=== PATIENT | male | born 1970 | race Hispanic/Latino ===

== ENCOUNTER → 2020-01-06 | Outpatient (CLI) | payer MEDICAID ==
[~2020-01-06] MED LIST: IOHEXOL-350 50ML VIAL IV ONE
== END | disposition home or self-care (01) ==
LOC: RAH 12:46
PROVIDERS: ATTEND Internal Medicine
DX: R18.8 Other ascites (principal); M54.6 Pain in thoracic spine
CPT/HCPCS: 71270; Q9967

== ENCOUNTER → 2020-01-20 | Outpatient (CLI) | payer MEDICAID | END | disposition home or self-care (01) | LOC: RAH 12:53 → EDUNIT# 13:00 | PROVIDERS: ATTEND Internal Medicine | DX: M47.812 Spondylosis without myelopathy or radiculopathy, cervical region (principal); M54.2 Cervicalgia; M54.6 Pain in thoracic spine | CPT/HCPCS: 72141; 72146 ==